=== PATIENT | female | born 1990 | race African-American/Black ===

== ENCOUNTER 2021-05-04 19:48 | Emergency (ER) | payer OTHER ==
[~2021-05-04] VITALS: Ht 167.6 cm; Wt 93.0 kg
[2021-05-04] MEDS ORDERED: DUI500 PO (21:21)
== END 2021-05-04 22:36 | disposition home or self-care (01) ==
LOC: ER 19:48
DX: S61.212A Laceration without foreign body of right middle finger without damage to nail, initial encounter (principal); R60.0 Localized edema; W45.8XXA Other foreign body or object entering through skin, initial encounter; Y93.17 Activity, water skiing and wake boarding; Y92.832 Beach as the place of occurrence of the external cause; Y99.8 Other external cause status